=== PATIENT | male | born 1955 | race Caucasian/White ===

== ENCOUNTER → 2017-09-11 | Outpatient (CLI) | payer OTHER ==
[~2017-09-11] MED LIST: ASPI81TA28 PO; CLOP1TAB15 PO; ERGO500037 PO; EZET10TA63 PO; FOLI800T PO; LISI5TAB PO; MULT-506 PO; OMEG10007 PO; PANT40TA PO
[2017-09-11 12:08] LABS: BASO % 0.8 %; BASO ABS # 0.05 K/uL (0-0.2); EOS % 4.7 %; EOS ABS # 0.31 K/uL (0-0.5); HEMATOCRIT 49.1 % (42-52); HEMOGLOBIN 16.3 g/dL (14.0-18.0); IG# 0.01 K/uL (0.00-0.02); LYMPH % 33.6 %; MEAN CELL VOLUME 91.1 fL (80-100); MEAN CORPUSCULAR HEMOGLOBIN 30.2 pg (25-34); MEAN CORPUSCULAR HGB CONC 33.2 g/dl (32-36); MEAN PLATELET VOLUME 9.9 fL (7.4-10.4); MONO % 9.5 %; MONO ABS # 0.62 K/uL (0.11-0.59); NEUT % 51.2 %; NEUT ABS # 3.36 K/uL (1.4-6.5); PLATELET COUNT 212 K/uL (130-400); RED CELL DISTRIBUTION WIDTH CV 12.8 % (11.5-14.5); RED CELL DISTRIBUTION WIDTH SD 42.3 fL (36.4-46.3); WHITE BLOOD COUNT 6.55 K/uL (4.8-10.8)
[2017-09-11 12:26] LABS: BLOOD UREA NITROGEN 22 mg/dl (7-18); CALCIUM 9.1 mg/dl (8.5-10.1); CARBON DIOXIDE 28 mmol/L (21-32); CREATININE 1.24 mg/dl (0.60-1.40); GLUCOSE 83 mg/dl (70-99); POTASSIUM 4.5 mmol/L (3.5-5.1); SODIUM 141 mmol/L (136-145)
== END | disposition home or self-care (01) ==
LOC: C.CPL 10:29
PROVIDERS: ATTEND Orthopaedic Surgery
DX: Z01.818 Encounter for other preprocedural examination (principal); M25.512 Pain in left shoulder

== ENCOUNTER → 2017-10-03 | Day surgery (SDC) | payer OTHER ==
[2017-09-13 07:40] VITALS: Ht 176.5 cm; Wt 97.7 kg
[~2017-10-03] VITALS: Ht 176.5 cm; Wt 97.7 kg
[~2017-10-03] MED LIST changes: +ATROPINE SULFATE 0.1 MG/ML 5ML SYR IV PRN; +BUPIVACAINE 0.25% 30 ML VIAL ONE; +CEFAZOLIN 2000MG IV PUSH 15 ML IV SCH; +DEXAMETHASONE SOD INJ 4 MG/ML VIAL IV PRN; +EpHEDrine SULFATE INJ 50 MG/ML AMP IV PRN; +EpHEDrine SULFATE INJ 50 MG/ML AMP ONE; +EpINEphrine INJ 1MG/ML AMP 1 MG/ML AMP ONE; +FENTANYL CITRATE INJ 50 MCG/1 ML 2 ML VIAL IV PRN; +FENTANYL CITRATE INJ 50 MCG/1 ML 2 ML VIAL ONE; +KETO10TA PO; +KETOROLAC TROMETHAMINE 30 MG/ML VIAL IV. PRN; +LABETALOL HCL IV 5 MG/ML 20ML IV PRN; +LIDOCAINE HCL 1% MPF 5 ML VIAL ONE; +LIDOCAINE HCL 2% 2 ML VIAL (20MG/ML) ONE; +METOCLOPRAMIDE HCL INJ 5 MG/ML 2 ML VIAL IV PRN; +MIDAZOLAM HCL 1 MG/ML 2ML VIAL ONE; +MoRPHine SULFATE 10 MG/ML CARP/VIAL IV PRN; +ONDANSETRON INJ 2 MG/ML 2 ML VIAL IV PRN; +ONDANSETRON INJ 2 MG/ML 2 ML VIAL ONE; +OXYC-57 PO; +OXYCODONE/ACETAMINOPHEN 5-325 TAB PO PRN; +PHENYLEPHRINE 100MCG/ML 5ML SYR IV PRN; +PROPOFOL IV EMULSION 10 MG/ML 20 ML VIAL IV ONE; +ROPIVACAINE 0.5% 5 MG/ML 30 ML VIAL ONE; +SODIUM CHLORIDE 0.9% 1000ML 1,000 ML IV SCH
[2017-10-03] MEDS: LACTATED RINGER'S 1000ML 1,000 ML IV SCH ×2 (10:48→15:02)
--- NOTE | 2017-10-03 11:10 | History & Physical Bridge Note ---
H&P Re-Evaluation Bridge Note: I have examined the patient, reviewed the History & Physical and in the interval since the performance of the History & Physical I have noted the following changes of clinical significance: No changes noted
--- NOTE | 2017-10-03 14:17 | [facility] Post Operative Brief Note ---
Immediate Operative Summary Operative Date Oct 03, 2017. Pre-Operative Diagnosis Massive rotator cuff tear left shoulder Post-Operative Diagnosis Same as preop Procedure(s) Performed Left Shoulder Arthroscopy, Massive Rotator Cuff Repair Surgeon Dr. Bentley Shop Mechanic Helper Surgeon(s) Cuco Ramirez PA-C Estimated Blood Loss 5 ML Findings Consistent with Post-Op Diagnosis Specimens None Anesthesia Type General Regional Complication(s) none Disposition Disposition: Recovery Room / PACU
--- NOTE | 2017-10-03 14:26 | Discharge Instructions-SurgCtr ---
Discharge Instructions Date of Service Oct 03, 2017. Visit Reason for Visit: Left Shoulder Full Thickness Rotator Cuff Tear Discharge Discharge Diagnosis / Problem: SAME ABOVE Discharge Goals Goal(s): Decrease discomfort, Improve function Medications Stopped Medications Name(s): no blood thinners Restart Stopped Medication(s): MAY RESTART 10/03/2017 Activity Recommendations Activity Limitations: as noted below Lifting Limitations: until after follow-up appointment Exercise/Sports Limitations: until after follow-up appointment Shower/Bathe: may shower/bathe in 3 days Anesthesia . Post Anesthesia Instructions: If you have had General Anesthesia or IV Sedation: * Do not drive today. * Resume driving when surgeon permits. * Do not make important decisions or sign legal documents today. * Call surgeon for: 1. Temperature elevations greater than 101 degrees F. 2. Uncontrollable pain. 3. Excessive bleeding. 4. Persistent nausea and vomiting. 5. Medication intolerance (nausea, vomiting or rash). * For nausea and vomiting use only clear liquids such as: tea, soda, bouillon until nausea subsides, then gradually increase diet as tolerated. * If you have any concerns or questions, call your surgeon's office. If physician is unavailable and it is an emergency, call 911 or go to the nearest emergency room. . Instructions / Follow-Up Instructions / Follow-Up MEDICATIONS: * Resume previous medications unless instructed otherwise by your surgeon. * Always take pain medication on a full stomach or with food to avoid upset stomach. * Do not drink alcohol or drive while taking narcotics. * Ibuprofen or Tylenol may be taken if narcotic not needed. SPECIAL CARE INSTRUCTIONS: __ None _X_ Keep extremity elevated and iced x 48 hours; apply ice 20-30 minutes 8-10 times/day. May remove at night. __ Sling __24 hrs/day __ Remove at night _X_ Shoulder Immobilizer (MAY REMOVE AFTER 72 HOURS ONLY TO SHOWER) _X_ 24 hrs/day __ Remove at night _X_ Dressing __ Maintain until seen in office, may shower with plastic over site _X_ Remove dressings in 728 hours and then may shower _X_ Cover incisions with band-aids after showering __ Do not remove steri-strips Call physician if chills or temperature rises above 102 degrees or pain unrelieved by prescribed pain medications at . . Diet Recommendations Home Diet: no limitations Fluid Restriction: None Procedures Procedures Performed: Left Shoulder Arthroscopy, Massive Rotator Cuff Repair Pending Studies Studies pending at discharge: no Work Instructions Return To Work: after follow-up Lifting Limitations: NO LIFTING WITH LEFT ARM Medical Emergencies . Who to Call and When: Medical Emergencies: If at any time you feel your situation is an emergency, please call 911 immediately. . Non-Emergent Contact Non-Emergency issues call your: Primary Care Provider Call Non-Emergent contact if: you have a fever, temperature is above 101.5 . . "Provider Documentation" section prepared by Cuco Ramirez. .
[2017-10-03 14:52] VITALS: TEMP 36.5
--- NOTE | 2017-10-03 14:58 | Anesthesia Progress Nt - [facility] ---
Anesthesia Post Op Note Date & Time Oct 03, 2017 at 14:58 Vital Signs Pain Intensity: 0 Vital Signs Past 12 Hours Date Time Temp Pulse Resp B/P (MAP) Pulse Ox O2 Delivery O2 Flow Rate FiO2 10/03/17 14:52 36.5 78 22 10/03/17 14:52 79 22 99 10/03/17 14:51 131/80 10/03/17 14:47 74 19 10/03/17 14:47 75 19 140/86 100 10/03/17 14:42 75 15 100 10/03/17 14:42 76 15 10/03/17 14:41 162/95 10/03/17 14:37 75 17 100 10/03/17 14:37 75 17 10/03/17 14:36 133/96 10/03/17 14:32 70 13 10/03/17 14:32 70 13 100 10/03/17 14:31 139/91 10/03/17 14:27 77 11 10/03/17 14:27 75 11 139/90 98 10/03/17 14:26 36.1 85 14 139/90 95 Mask 6 10/03/17 12:17 14 10/03/17 12:16 68 15 94 10/03/17 12:16 68 10/03/17 12:11 65 10/03/17 12:11 68 22 95 10/03/17 12:10 67 19 99 10/03/17 12:10 69 10/03/17 12:07 160/85 10/03/17 12:05 66 0 95 10/03/17 12:05 64 10/03/17 10:21 36.4 64 16 144/98 (113) 97 Room Air Notes Mental Status: alert / awake / arousable, participated in evaluation Pt Amnestic to Procedure: Yes Nausea / Vomiting: adequately controlled Pain: adequately controlled Airway Patency, RR, SpO2: stable & adequate BP & HR: stable & adequate Hydration State: stable & adequate Anesthetic Complications: no major complications apparent
[2017-10-03 15:26] VITALS: BP 145/90; PULSE 68; O2SAT 96
--- NOTE | 2017-10-03 15:27 | OPERATIVE REPORT ---
DATE OF OPERATION: 10/03/2017 PREOPERATIVE DIAGNOSIS: Massive left rotator cuff tear. POSTOPERATIVE DIAGNOSIS: Same. PROCEDURE: Left shoulder diagnostic arthroscopy with extensive debridement, acromioplasty and massive rotator cuff repair. SURGEON: Dr. Diogo Bentley. RELAYS DRAFTSPERSON: Miguel Ramirez PA-C, whose assistance was necessary for positioning the arm and helping with instrumentation. ANESTHESIA: General with a left interscalene nerve block. COMPLICATIONS: None. CONDITION: Stable to PACU. INDICATIONS: James is a pleasant 62-year-old male who injured his shoulder 10 years ago. He was told he had a rotator cuff tear then. Over time, his shoulder pain has gotten worse. He eventually presented to my office for evaluation. MRI and clinical examination were diagnostic for massive chronic retracted rotator cuff tear. I was unsure if we would have to do a superior capsular reconstruction or repair. He understood the risks, benefits, alternatives to the procedure and elected to proceed. On October 03, 2017, he arrived at [facility] for the above procedure. He was seen in the preoperative holding and the operative extremity was identified and signed. He was given a preoperative antibiotic and a left interscalene nerve block. He was taken back to the operating room, laid on the table in supine position and put under general anesthesia. He was then put into the beachchair position. The left shoulder was prepped and draped in sterile fashion. Time-out was done. The patient and operative extremity were properly identified. A scope was introduced in the posterior portal. Diagnostic arthroscopy showed no cartilage damage to the humeral head or the glenoid. There was significant fraying of the anterior and superior labrum. The biceps tendon had been traumatically tenotomized. The subscapularis was intact. The teres minor was intact and a portion of the infraspinatus was intact. The remainder of the infraspinatus and supraspinatus were torn and retracted. An anterior portal was made. A shaver was used to start debridement of some of the intra-articular structures. The labrum was debrided back to stable margins. The scope was then put in the subacromial space. A lateral portal was made. A shaver was used to do a complete subacromial and subdeltoid bursectomy. An ablator was used to tease a little bit of the coracoacromial ligament off the undersurface of the acromion and a 5-0 leander was used to do a very minimal acromioplasty. Attention was turned to the rotator cuff. An additional anterolateral portal was made and Beatriz cannulas were placed in each lateral portals. I was able to grab the supraspinatus anteriorly and the infraspinatus posteriorly and bring them back down to the footprint with very little tension. It appeared to be a posterior interval split. The greater tuberosity was prepared with a ring curette and a microfracture. I fixed the infraspinatus with an Arthrex modified SpeedBridge configuration using 4.75 mm BioComposite SwiveLock suture anchors and FiberTapes. I fixed the supraspinatus in a similar fashion. I tied the stay stitches across the anchor to each other to hold down the medial row. I did not need to do any interval sutures. I was able to repair it with very little tension. The cuff tissue was fair, but not great. I did not feel we needed a superior capsular reconstruction at the time. Multiple pictures were taken. The scope was placed back into the glenohumeral joint and the articular margin of the rotator cuff had been restored. Pictures were taken. Arthroscopic instruments were removed from the shoulder. Portal sites were closed with 3-0 nylon. He was then placed in a soft dressing and an abduction arm sling. He was then extubated, transferred to a litter and taken to postanesthesia care in stable condition. He tolerated the procedure well. I attest to the content of the Intraoperative Record and any orders documented therein. Any exception s are noted below.
== END | disposition home or self-care (01) ==
LOC: X.SURG 10:06
PROVIDERS: ATTEND Orthopaedic Surgery
DX: M75.102 Unspecified rotator cuff tear or rupture of left shoulder, not specified as traumatic (principal); I10 Essential (primary) hypertension; K21.9 Gastro-esophageal reflux disease without esophagitis; Z86.73 Personal history of transient ischemic attack (TIA), and cerebral infarction without residual deficits; E78.5 Hyperlipidemia, unspecified; Z90.3 Acquired absence of stomach [part of]; Z85.028 Personal history of other malignant neoplasm of stomach; Z82.49 Family history of ischemic heart disease and other diseases of the circulatory system; Z82.3 Family history of stroke; Z83.3 Family history of diabetes mellitus